=== PATIENT | male | born 1990 | race Caucasian/White ===

== ENCOUNTER 2020-07-05 12:30 | Outpatient (CLI) | payer OTHER, SELFPAY | END 2020-07-05 12:31 | disposition home or self-care (01) | LOC: SLEEP 07-06 12:03 | PROVIDERS: PCP Family Medicine; Visit Provider Family Medicine | DX: G47.34 Idiopathic sleep related nonobstructive alveolar hypoventilation (principal) | CPT/HCPCS: G0399 ==

== ENCOUNTER → 2022-11-20 08:50 | Outpatient (BNVA) | payer OTHER, SELFPAY | PROVIDERS: Visit Provider Family Medicine | DX: G47.34 Idiopathic sleep related nonobstructive alveolar hypoventilation (principal); R63.5 Abnormal weight gain | CPT/HCPCS: 80053; 80061; 84439; 84443 ==

== ENCOUNTER 2022-12-16 06:40 | Outpatient (CLI) | payer OTHER, SELFPAY ==
--- NOTE | 2022-12-16 07:15 | US_ITS ---
WS: [id number] ULTRASOUND ABDOMEN CLINICAL INFORMATION: R74.01 - Elevation of levels of liver transaminase levels COMPARISON: None. FINDINGS: Liver Size: Enlarged craniocaudal length: 17.5 cm. Echogenicity: Coarse surface nodularity: None. Mass (size and location): None. Normal hepatopetal in the main portal vein flow. Bile ducts Intrahepatic ducts: Normal. Common bile duct diameter: 0.3 cm. Gallbladder Normal. Gallstones: None. Gallbladder sludge: None. Gallbladder wall thickening: None. Pericholecystic fluid: None. Sonographic Hankins sign: Absent. Pancreas Normal as visualized. Spleen Splenomegaly: Enlarged Craniocaudal length: 13.6 cm. Right kidney: Normal. Hydronephrosis: None. Size: 12.4 cm x 5.0 cm x 6.2 cm Left kidney: Normal. Hydronephrosis: None. Size: 13.0 cm x 6.9 cm x 6.5 cm. Abdominal aorta and IVC Visualized portions are normal. Ascites: None. IMPRESSION: 1. Hepatomegaly with diffuse fatty filtration. 2. Normal gallbladder. No cholelithiasis. 3. No hydronephrosis in either kidney. 4. Mild splenomegaly. 5. No ascites.
== END 2022-12-16 06:41 | disposition home or self-care (01) ==
PROVIDERS: PCP Family Medicine; Visit Provider Family Medicine
DX: R74.01 Elevation of levels of liver transaminase levels (principal); R63.5 Abnormal weight gain; K76.0 Fatty (change of) liver, not elsewhere classified; R16.1 Splenomegaly, not elsewhere classified
CPT/HCPCS: 76700

== ENCOUNTER → 2023-04-20 09:03 | Outpatient (BNVA) | payer OTHER, SELFPAY | PROVIDERS: PCP Family Medicine; Visit Provider Family Medicine | DX: R74.01 Elevation of levels of liver transaminase levels (principal) | CPT/HCPCS: 80053; 80061; 85025 ==

== ENCOUNTER → 2023-05-11 09:18 | Outpatient (BNVA) | payer OTHER, SELFPAY | PROVIDERS: PCP Family Medicine; Visit Provider Family Medicine | DX: M16.12 Unilateral primary osteoarthritis, left hip (principal); M25.552 Pain in left hip | CPT/HCPCS: 73502 ==

== ENCOUNTER → 2024-04-22 09:22 | Outpatient (BNVA) | payer OTHER, SELFPAY | PROVIDERS: PCP Family Medicine; Visit Provider Family Medicine | DX: R74.01 Elevation of levels of liver transaminase levels (principal) | CPT/HCPCS: 80053; 80061; 84439; 84443; 85025; 86705; 86706; 86709; 86803; 87340 ==

== ENCOUNTER → 2024-07-18 10:50 | Outpatient (BNVA) | payer OTHER, SELFPAY | PROVIDERS: PCP Family Medicine; Visit Provider Family Medicine | DX: R74.01 Elevation of levels of liver transaminase levels (principal) | CPT/HCPCS: 82977; 83615; 84450; 84460 ==

== ENCOUNTER → 2024-12-16 12:14 | Outpatient (BNVA) | payer OTHER, SELFPAY | PROVIDERS: PCP Family Medicine; Visit Provider Nurse Practitioner Family | DX: M16.12 Unilateral primary osteoarthritis, left hip (principal) | CPT/HCPCS: 73502 ==

== ENCOUNTER 2025-02-10 06:57 | Outpatient (CLI) | payer OTHER, SELFPAY ==
--- NOTE | 2025-02-10 07:15 | MR_ITS ---
WS: [id number] EXAMINATION: MR hip LT wo con* [id number] ORDER DATE: 02/10/2025 7:07 AM COMPARISON: None. HISTORY: M25.552 - Pain in left hip CONTRAST: None. TECHNIQUE: Coronal STIR of the Pelvis. Coronal proton density, coronal T1, axial T2 fat sat, axial T1, sagittal T2 fat sat, and sagittal T1 performed of the hip. After contrast, axial T1 fat sat, coronal T1 fat sat, and sagittal T1 fat sat were performed. FINDINGS: Normal bone marrow signal in the LEFT hip. No acute fractures. No joint effusion. Normal marrow signal in the pubic rami. RIGHT hip is normal in appearance. Normal bone marrow signal in the bony sacrum and pelvis. Visualized proximal femurs are normal in appearance. No evidence of trochanteric bursitis. Normal pubic symphysis. No LEFT inguinal lymphadenopathy. Sacroiliac joints appear normal. MR/MR hip LT wo con* [id number] IMPRESSION: 1. Mild degenerative narrowing LEFT hip. No acute fractures. No bone marrow ed doroteo. 2. No joint effusion. 3. Normal surrounding soft tissues. No acute LEFT hip findings.
== END 2025-02-10 06:58 | disposition home or self-care (01) ==
LOC: RAD 06:58
PROVIDERS: PCP Family Medicine; Visit Provider Family Medicine
DX: M25.552 Pain in left hip (principal); G89.29 Other chronic pain; M16.12 Unilateral primary osteoarthritis, left hip
CPT/HCPCS: 73721